=== PATIENT | male | born 1970 | race Native Hawaiian/Other Pacific Islander ===

== ENCOUNTER 2016-03-07 14:06 | Emergency (ER) | payer OTHER ==
[2016-03-07 14:48] VITALS: BP 120/73
--- NOTE | 2016-03-07 15:05 | Emergency Department Report ---
HPI - General Chief Complaint: Laceration/Recheck/Suture Time Seen by Provider: 03/07/16 14:55 - HPI HPI: 44-year-old male presents today for staple removal. Patient was seen here 12 days ago for a scalp laceration. He was walking down the steps and fell backwards, hitting his head. Denies loss of consciousness at the time of injury. Denies pain, bleeding, or drainage at this time. Denies fever, chills , nausea, vomiting, chest pain, shortness of breath, abdominal pain. ED Past Medical Hx - Past Medical History Previous Medical History?: No - Surgical History Past Surgical History?: No - Social History Smoking Status: Never Smoker Substance Use Type: None - Medications Home Medications: Home Medications Medication Instructions Recorded Confirmed Last Taken Type Cephalexin [Keflex] 500 mg PO BID #12 capsule 02/24/16 Unknown Rx Cyclobenzaprine [Flexeril] 10 mg PO TID PRN #15 tablet 02/24/16 Unknown Rx Ibuprofen [Motrin] 800 mg PO Q8HR PRN #30 tablet 02/24/16 Unknown Rx Cefuroxime [Ceftin] 250 mg PO Q12H #28 tablet 02/25/16 Unknown Rx ED Review of Systems ROS: Stated complaint: STAPLE REMOVAL Other details as noted in HPI Constitutional: denies: chills, fever, malaise Eyes: denies: eye pain ENT: denies: ear pain, throat pain, congestion Respiratory: denies: cough, shortness of breath, wheezing Cardiovascular: denies: chest pain, palpitations Endocrine: no symptoms reported Gastrointestinal: denies: abdominal pain, nausea, vomiting Skin: denies: rash Neurological: denies: headache, weakness, numbness, paresthesias Physical Exam - Physical Exam Vital Signs: Vital Signs 03/07/16 14:45 Temperature 98.2 F Pulse Rate 92 H Respiratory 20 Rate Blood Pressure 120/73 [Right] O2 Sat by Pulse 96 Oximetry Physical Exam: GENERAL: The patient is well-developed and well-nourished. Patient is in NAD. HEAD: Normocephalic. Atraumatic. SCALP: A 1 cm well-healed laceration noted above with the left occipital region. 3 jim are noted. No bleeding or drainage noted. CHEST/LUNGS: Clear to auscultation throughout. HEART/CARDIOVASCULAR: Regular rate and rhythm. No murmurs, rubs or gallops. ABDOMEN: Abdomen is soft, nontender. No guarding or rebound tenderness. EXTREMITIES:Peripheral pulses intact. Capillary refill less than 2 seconds. NEURO: Alert and oriented x 3. Normal gait. ED Course Vital Signs 03/07/16 14:45 Temperature 98.2 F Pulse Rate 92 H Respiratory 20 Rate Blood Pressure 120/73 [Right] O2 Sat by Pulse 96 Oximetry ED Medical Decision Making - Lab Data Vital Signs 03/07/16 14:45 Temperature 98.2 F Pulse Rate 92 H Respiratory 20 Rate Blood Pressure 120/73 [Right] O2 Sat by Pulse 96 Oximetry - Medical Decision Making 45-year-old male presents today for staple removal. 3 jim were removed from his scalp. Patient tolerated the procedure well. Wound care instructions provided. Patient is in no acute distress at this time. He will be discharged home and is encouraged to follow up with a primary care provider. He is encouraged to return to the emergency room for any worsening symptoms. Critical care attestation.: If time is entered above; I have spent that time in minutes in the direct care of this critically ill patient, excluding procedure time. ED Disposition Clinical Impression: Encounter for staple removal Disposition: DISCHARGED TO HOME OR SELFCARE Is pt being admited?: No Does the pt Need Aspirin: No Condition: Stable Instructions: Staple Care (ED), Minor Head Injury (ED) Additional Instructions: Follow-up with primary care provider. Return to emergency department if symptoms worsen. Referrals: PRIMARY CARE, [Primary Care Provider] - 3-5 Days [facility] [Outside] - 3-5 Days Forms: Work/School Release Form(ED) Time of Disposition: 15:05
== END 2016-03-07 15:14 | disposition home or self-care (01) ==
LOC: ED 14:06
DX: Z48.02 Encounter for removal of sutures (principal)

== ENCOUNTER 2018-06-01 01:51 | Emergency (ER) | payer OTHER ==
[2018-06-01] MEDS ORDERED: NORCO 7.5/325 PO ONE (03:06)
[2018-06-01] MEDS ORDERED: NACL 0.9% 500 ML IR ONE (03:54)
[2018-06-01] MEDS ORDERED: XYLOCAINE 1% 20 mL ONE (03:54)
[2018-06-01] MEDS ORDERED: NACL 0.9% IR ONE (03:58)
[2018-06-01] MEDS ORDERED: XYLOCAINE 1% 20 mL INFILTRATI ONE (03:58)
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
[2018-06-01] MEDS ORDERED: BOOSTRIX IM ONE (05:03)
[2018-06-01 05:50] VITALS: BP 120/86
== END 2018-06-01 05:50 | disposition home or self-care (01) ==
LOC: ED 01:51
DX: S01.511A Laceration without foreign body of lip, initial encounter (principal); S03.2XXA Dislocation of tooth, initial encounter; Y04.0XXA Assault by unarmed brawl or fight, initial encounter; Y93.89 Activity, other specified; Y92.89 Other specified places as the place of occurrence of the external cause; Y99.8 Other external cause status
CPT/HCPCS: 70450; 70486; 90471; 90715